=== PATIENT | male | born 1965 | race African-American/Black ===

== ENCOUNTER 2016-11-13 08:30 | Day surgery (SDC) | payer OTHER ==
[~2016-11-13] VITALS: Ht 180.3 cm; Wt 85.0 kg
[~2016-11-13 08:30] MED LIST: 0.9% Sodium Chloride 1,000 ML IV SCH; ALBU90AE IH; CETI10CA PO; FLUT12AE4 IH; FLUT9.9S NS; LISI10TA PO; Sodium Chloride LOK Flush 10 mL Syringe IV PRN; fentaNYL-PF 50 mCg/mL 2 mL Inj IVPUSH PRN
[2016-11-13] MEDS ORDERED: ASPI-973 PO (09:48)
[2016-11-13 09:56] VITALS: BP 127/89; PULSE 60; RESP 12; O2SAT 98
[2016-11-13 10:30] VITALS: BP 139/91; PULSE 68; RESP 16; O2SAT 100
[2016-11-13 10:39] VITALS: BP 127/91; PULSE 70; RESP 16; O2SAT 95
--- NOTE | 2016-11-13 16:36 | ENDO ---
[address] [address] ENDOSCOPY PROCEDURE PATIENT: HUNG WEN : 1965 MR#: [id number] ADMIT: 11/13/2016 JOB ID: [id number] DATE: 11/13/16 PROCEDURE: Esophagogastroduodenoscopy. INDICATION: Gastroesophageal reflux. Patient's ASA classification is 1. Mallampati score is 2. MEDICATIONS: 1. Versed 3 mg. 2. Fentanyl 75 mcg. INSTRUMENT USED: GIF H 180 J. PROCEDURE DETAILS: After informed consent was obtained, the patient was brought into the GI suite, where he was placed on oxygen via nasal cannula and monitored with continuous pulse oximeter, telemetry, and blood pressure monitoring. A time-out was performed. Then, he was placed in a left lateral decubitus position and medications were administered for sedation. A bite block was placed. The standard EGD scope was inserted through the bite block and advanced under direct visualization to second portion of the duodenum without difficulty. FINDINGS: 1. Normal-appearing duodenal bulb, first and second portion. 2. Normal-appearing pylorus. In the antrum and body of the stomach, there was erythema as well as erosions noted. Additionally, the mucosa in the gastric body was erythematous and edematous suggestive of gastritis. 3. Retroflexed views in the gastric body revealed a normal-appearing cardia and fundus. 4. Multiple random biopsies were obtained throughout the antrum and body of the stomach. 5. Normal-appearing gastroesophageal junction with a regular Z-line at 40 cm. 6. Normal-appearing esophagus. IMPRESSION: Gastritis and erosions noted in the antrum and body of the stomach. RECOMMENDATIONS: 1. Await biopsy results. 2. Start PPI daily. 3. Follow up in GI clinic. COMPLICATIONS: None. ESTIMATED BLOOD LOSS: Less than 5 mL.
--- NOTE | 2016-11-15 18:42 | PATH ---
SURGICAL PATHOLOGY Attending Physician:Katerin Kendrick CASE STATUS: Signed Out PATIENT NAME: HUNG WEN PID: [id number] : 1965 DATE COLLECTED:11/13/2016 16:22 SPECIMEN: Gastric, Biopsy CLINICAL HISTORY: HX H.PYLORI, GERD, GASTRIC EROSIONS 1). RANDOM GASTRIC BIOPSY (RULE OUT H.PYLORI) FINAL DIAGNOSIS: Random Gastric Biopsy: Superficial portions of gastric antral and body-type mucosa with mild chronic gastritis. No definite H. pylori organisms identified by H&E stain and immunohistochemistry studies. Intestinal metaplasia is present. Negative for dysplasia and malignancy. ICD10: K29.7 GROSS DESCRIPTION: The specimen is received in one formalin filled container labeled with the patient's name, sublabeled "random gastric" and consists of 4 portions of tissue which aggregate to 0.3 x 0.3 x 0.2 CM. The specimen is entirely submitted in one cassette. 11/13/2016DC MICRO DESCRIPTION: IMMUNOHISTOCHEMISTRY: Block 1A: H. pylori: Negative * This test was developed and its performance characteristics determined by [facility]. It has not been cleared or approved by the U.S. Food and Drug Administration. The FDA has determined that such clearance or approval is not necessary. This test is used for clinical purposes. It should not be regarded as investigational or for research. ICD-9 CODES: CPT CODES: 1: 90212, 92339 Electronically Signed Out Coty Avila MD [facility] Pathology [facility] [address], [place] [address] Technical component performed at [facility], [facility] [address], [place], [address]
== END 2016-11-13 23:59 | disposition home or self-care (01) ==
LOC: END 08:30
PROVIDERS: ATTEND Internal Medicine Gastroenterology
DX: K29.50 Unspecified chronic gastritis without bleeding (principal); K21.9 Gastro-esophageal reflux disease without esophagitis
CPT/HCPCS: 43239; G0500; J2250; J3010; J7030